=== PATIENT | female | born 1980 | race African-American/Black ===

== ENCOUNTER 2017-04-01 10:42 | Emergency (ER) | payer OTHER ==
[~2017-04-01] VITALS: Ht 170.2 cm; Wt 150.0 kg
[~2017-04-01 10:42] MED LIST: ADVAIR HFA120 INHALA IH; AMOXICILLIN875 MG PO; AUGMENTIN875 MG PO; COLACE100 MG PO; COUMADIN,JANTOV10 MG PO; COUMADIN10 MG PO; COUMADIN5 MG PO; Cipro PO; DAILY MULTIPLE1 EACH PO; ENDOCET 5-3251 EAC1 PO; ENDOCET 5-3251 EACH PO; FLEXERIL10 MG PO; FLONASE ALLERG9.9 ML BOTH NARES; FLUCONAZOLE150 MG PO; HYDROCODON-ACE1 EAC7 PO; INTRINSI B12-F1 EACH PO; IRON325 M1 PO; LIDOCAINE700 MG TD; LOVENOX100 MG/1 M SC; LOVENOX150 MG/1 M SC; Lovenox SC; MELOXICAM15 MG PO; NAPROSYN500 MG PO; OXYCODONE HCL5 MG PO; PERCOCET 5/31 TABLET PO; PREDNISONE10 MG PO; PROAIR HFA8.5 GM IH; Protonix PO; TYLENOL EXTRA500 MG PO; Vicodin,Norco 5/325 PO; XARELTO20 MG PO; ZOFRAN ODT4 MG PO
[2017-04-01 12:33] LABS: HEMATOCRIT 36.8 % (36.0-46.0); HEMOGLOBIN 11.6 G/DL (11.9-15.5); MCH 27.2 PG (29.0-34.0); MCHC 31.5 G/DL (30.0-36.0); MCV 86.2 FL (83-99); PLATELET COUNT 270 K/uL (156-360); RBC DIS.WIDTH-CV 14.6 % (11.8-14.6); RBC DIS.WIDTH-SD 46.2 % (39-53); RED BLOOD COUNT 4.27 M/uL (3.80-5.20); WHITE BLOOD COUNT 9.8 K/uL (4.1-10.2)
[2017-04-01 12:49] LABS: CHLORIDE 107 mEq/L (99-109); POTASSIUM 4.5 mEq/L (3.7-5.4); SODIUM 140 mEq/L (136-147)
[2017-04-01 12:50] LABS: GLUCOSE 100 mg/dL (70-99)
[2017-04-01 12:54] LABS: CREATININE 0.8 mg/dL (0.6-1.3); GFR ESTIMATE (CALCULATED) > 59 mL/min/
[2017-04-01 12:55] LABS: UREA NITROGEN (BUN) 14 mg/dL (9-23)
[2017-04-01 12:57] LABS: TROP-I INTERPRETATION NEGATIVE; TROPONIN-I < 0.01 ng/mL (0.0-0.30)
[2017-04-01 13:54] LABS: INTER. NORMALIZED RATIO 1.7
[2017-04-01 13:56] LABS: D-DIMER ELISA < 150.00 ng/mLDDU (<230)
[2017-04-01] MEDS ORDERED: FLEXERIL10 MG PO (14:30)
[2017-04-01] MEDS ORDERED: LORTAB 5-325 M1 EACH PO (14:30)
[2017-04-01] MEDS ORDERED: VOLTAREN 1% GE100 GM TP (14:30)
[2017-04-01 14:44] VITALS: BP 145/93
== END 2017-04-01 14:45 | disposition home or self-care (01) ==
LOC: EME 10:42
PROVIDERS: Nurse Practitioner Family
DX: S46.912A Strain of unspecified muscle, fascia and tendon at shoulder and upper arm level, left arm, initial encounter (principal); M62.830 Muscle spasm of back; X58.XXXA Exposure to other specified factors, initial encounter; Z86.718 Personal history of other venous thrombosis and embolism; Z86.711 Personal history of pulmonary embolism; Z79.01 Long term (current) use of anticoagulants; R07.9 Chest pain, unspecified; J45.909 Unspecified asthma, uncomplicated; F32.9 Major depressive disorder, single episode, unspecified; F41.9 Anxiety disorder, unspecified; Z87.442 Personal history of urinary calculi; Z87.891 Personal history of nicotine dependence
CPT/HCPCS: 71046; 80048; 84484; 85027; 85379; 85610; 93005; 99281; 99284; J2270